=== PATIENT | female | born 1995 | race Caucasian/White ===

== ENCOUNTER 2018-08-27 18:40 | Emergency (ER) | payer OTHER ==
[2018-08-27] MEDS ORDERED: TYLENOL 325 MG PO ONE (19:23)
--- NOTE | 2018-08-27 19:29 | ERPHSYRPT ---
- History of Present Illness Time Seen by Provider: 08/27/18 19:18 Source: patient Exam Limitations: no limitations Patient Subjective Stated Complaint: states fell while having a "black out spell " onto wooden porch at approx 4 pm today. now having a headache. Triage Nursing Assessment: to room per w/c. skin w/d, color normal, resp easy. patient very weak and assisted to bed from w/c. small raised area noted to left side of head, tender to touch. fatou Physician History: 23 year old white female with history of chronic muscle weakness , pseudoseizures , non epileptic seizures, arrives with complaint of head pain since "black out spell at approximately 4:00 pm today. patient states she chronically passes out several times a day she states she did so at 4:00 today and hit her head. now complains of generalized headache. past medical history : pseudoseizures, non eptileptic seizures, black out spells , chronic muscle wweakness , walks with a cane. past surgical history: myringotomy tubes. Timing/Duration: today (4:00 pm) Severity: moderate Modifying Factors: Improves With: nothing Associated Symptoms: headaches, syncope, No nausea, No vomiting, No abdominal pain, No shortness of breath, No heartburn, No diaphoresis, No cough, No chills , No chest pain, No fever, No loss of appetite, No malaise, No rash, No seizure , No weakness, No other Allergies/Adverse Reactions: sertraline [From Zoloft] Adverse Reaction (Verified 08/27/18 19:14) Home Medications: No Reportable Medications [No Reported Medications] 08/27/18 [History] Hx Tetanus, Diphtheria Vaccination/Date Given: No Hx Influenza Vaccination/Date Given: No Hx Pneumococcal Vaccination/Date Given: No - Review of Systems Constitutional: No Symptoms Eyes: No Symptoms Ears, Nose, & Throat: No Symptoms Respiratory: No Cough, No Dyspnea Cardiac: No Chest Pain, No Edema, No Syncope Abdominal/Gastrointestinal: No Abdominal Pain, No Nausea, No Vomiting, No Diarrhea Genitourinary Symptoms: No Dysuria Musculoskeletal: Other (chronic muscle weakness), No Back Pain, No Neck Pain Skin: No Rash Neurological: Headache, Other (black out spells several per day), No Dizziness, No Focal Weakness, No Gait Changes, No Irritability, No Lethargy, No Paralysis, No Parasthesia, No Seizure, No Sensory Changes, No Speech Changes, No Tics, No Tremors, No Vertigo Psychological: No Symptoms Endocrine: No Symptoms All Other Systems: Reviewed and Negative - Past Medical History Pertinent Past Medical History: Yes Neurological History: Other Other Medical History: nonepileptic pseudoseizure - Past Surgical History Past Surgical History: Yes Other Surgical History: tubes in ears - Social History Smoking Status: Never smoker Exposure to second hand smoke: No Drug Use: none Patient Lives Alone: No - Female History Hx Last Menstrual Period: 08/21/18 Hx Now: No - Nursing Vital Signs Nursing Vital Signs: Initial Vital Signs Temperature 97.9 F 08/27/18 18:57 Pulse Rate 66 08/27/18 18:57 Respiratory Rate 16 08/27/18 18:57 Blood Pressure 109/57 08/27/18 18:57 O2 Sat by Pulse Oximetry 66 L 08/27/18 18:57 Pain Scale Pain Intensity 3 - Physical Exam General Appearance: no apparent distress, alert, other (head mild tenderness occipital area) Eye Exam: PERRL/EOMI, eyes nml inspection Ears, Nose, Throat Exam: normal ENT inspection, TMs normal, pharynx normal, moist mucous membranes Neck Exam: normal inspection, non-tender, supple, full range of motion Respiratory Exam: normal breath sounds, lungs clear, No respiratory distress Cardiovascular Exam: regular rate/rhythm, normal heart sounds, normal peripheral pulses Gastrointestinal/Abdomen Exam: soft, normal bowel sounds, No tenderness, No mass Back Exam: normal inspection, normal range of motion, No CVA tenderness, No vertebral tenderness Extremity Exam: normal inspection, normal range of motion, pelvis stable Neurologic Exam: alert, oriented x 3, senior service technician II-XII nml as tested, other (patient with arms waving around when performing finger to nose able to touch localized area on face spontaneously bilaterally when distracted.), No motor deficits, No sensory deficit, No disoriented, No confusion, No agitation, No uncooperative, No intoxicated appearance, No depressed mood/affect, No facial droop, No slurred speech Skin Exam: normal color, warm, dry, No rash Lymphatic Exam: No adenopathy SpO2 Interpretation: normal (66%) SpO2: 66 Oxygen Delivery: Room Air - Course Nursing assessment & vital signs reviewed: Yes EKG Interpreted by Me: RATE (62 bpm), Sinus Rhythm, NORMAL AXIS, Other (EKG: Sinus rhythm, [address] or T wave changes noted essentially normal EKG) - CT Exams Head CT Interpretation: Discussed w/radiologist (normal ct head) Ordered Tests: Active Orders 24 hr Category Date Time Status EKG-ER Only STAT Care 08/27/18 19:22 Active IV Insertion STAT Care 08/27/18 19:22 Active Orthostatic Vital Signs STAT Care 08/27/18 21:08 Active HEAD WITHOUT CONTRAST [CT] Stat Exams 08/27/18 20:15 Taken CBC W DIFF Stat Lab 08/27/18 19:40 Completed CMP Stat Lab 08/27/18 19:40 Completed HCG QUALITATIVE,SERUM Stat Lab 08/27/18 19:40 Completed UA W/RFX UR CULTURE Stat Lab 08/27/18 19:59 Completed Urine Triage Profile Stat Lab 08/27/18 19:59 Completed Medication Summary Discontinued Medications Generic Name Dose Route Start Last Admin Trade Name Freq PRN Reason Stop Dose Admin Acetaminophen 650 mg 08/27/18 19:23 08/27/18 20:04 Tylenol 325 Mg PO 08/27/18 19:24 650 mg STAT ONE Administration Acetaminophen Confirm 08/27/18 20:00 Tylenol 325 Mg Administered 08/27/18 20:01 Dose 650 mg .ROUTE .STK-MED ONE Sodium Chloride 1,000 mls @ 100 mls/hr 08/27/18 19:30 08/27/18 21:41 Sodium Chloride 0.9% 1000 Ml IV 09/26/18 19:29 0 mls/hr .Q10H PRAMOD Infusion Sodium Chloride Confirm 08/27/18 20:00 Sodium Chloride 0.9% 1000 Ml Administered 08/27/18 20:01 Dose 1,000 mls @ ud .ROUTE .STK-MED ONE Lab/Rad Data: Laboratory Result Diagrams 08/27/18 19:40 08/27/18 19:40 Laboratory Results 08/27/18 08/27/18 08/27/18 Range/Units 19:59 19:59 19:40 WBC (4.0-10.5) K/mm3 RBC (4.1-5.4) M/mm3 Hgb (12.0-16.0) gm/dl Hct (35-47) % MCV (78-100) fl MCH (26-32) pg MCHC (32-36) g/dl RDW (11.5-14.0) % Plt Count (150-450) K/mm3 MPV (6-9.5) fl Gran % (36.0-66.0) % Eos # (Auto) (0-0.5) Absolute Lymphs (auto) (1.0-4.6) Absolute Monos (auto) (0.0-1.3) Lymphocytes % (24.0-44.0) % Monocytes % (0.0-12.0) % Eosinophils % (0.00-5.0) % Basophils % (0.0-0.4) % Absolute Granulocytes (1.4-6.9) Basophils # (0-0.4) Sodium (137-145) mmol/L Potassium (3.5-5.1) mmol/L Chloride (98-107) mmol/L Carbon Dioxide (22-30) mmol/L Anion Gap (5-15) MEQ/L BUN (7-17) mg/dL Creatinine (0.52-1.04) mg/dL Estimated GFR ML/MIN Glucose (74-106) mg/dL Calcium (8.4-10.2) mg/dL Total Bilirubin (0.2-1.3) mg/dL AST (14-36) U/L ALT (0-35) U/L Alkaline Phosphatase (38-126) U/L Serum Total Protein (6.3-8.2) g/dL Albumin (3.5-5.0) g/dL Serum , Qual NEGATIVE (Negative) Urine Color YELLOW (YELLOW) Urine Appearance CLEAR (CLEAR) Urine pH 6.0 (5-6) Ur Specific [place] 1.016 (1.005-1.025) Urine Protein NEGATIVE (Negative) Urine Ketones NEGATIVE (NEGATIVE) Urine Blood NEGATIVE (0-5) Lm/ul Urine Nitrite NEGATIVE (NEGATIVE) Urine Bilirubin NEGATIVE (NEGATIVE) Urine Urobilinogen NEGATIVE (0-1) mg/dL Ur Leukocyte Esterase NEGATIVE (NEGATIVE) Urine WBC (Auto) NONE (0-5) /HPF Urine RBC (Auto) NONE (0-2) /HPF U Epithel Cells (Auto) RARE (FEW) /HPF Urine Bacteria (Auto) NONE (NEGATIVE) /HPF Urine Mucus (Auto) SLIGHT (NEGATIVE) /HPF Urine Culture Reflexed NO (NO) Urine Glucose NEGATIVE (NEGATIVE) mg/dL Urine Opiates Level NEGATIVE (NEGATIVE) Ur Methadone NEGATIVE (NEGATIVE) Urine Barbiturates NEGATIVE (NEGATIVE) Ur Phencyclidine (PCP) NEGATIVE (NEGATIVE) Urine Amphetamine NEGATIVE (NEGATIVE) U Benzodiazepine Level NEGATIVE (NEGATIVE) Urine Cocaine NEGATIVE (NEGATIVE) Urine Marijuana (THC) NEGATIVE (NEGATIVE) 08/27/18 08/27/18 Range/Units 19:40 19:40 WBC 8.7 (4.0-10.5) K/mm3 RBC 4.23 (4.1-5.4) M/mm3 Hgb 13.2 (12.0-16.0) gm/dl Hct 39.5 (35-47) % MCV 93.4 (78-100) fl MCH 31.2 (26-32) pg MCHC 33.4 (32-36) g/dl RDW 12.7 (11.5-14.0) % Plt Count 205 (150-450) K/mm3 MPV 12.1 H (6-9.5) fl Gran % 57.5 (36.0-66.0) % Eos # (Auto) 0.17 (0-0.5) Absolute Lymphs (auto) 2.93 (1.0-4.6) Absolute Monos (auto) 0.59 (0.0-1.3) Lymphocytes % 33.6 (24.0-44.0) % Monocytes % 6.8 (0.0-12.0) % Eosinophils % 1.9 (0.00-5.0) % Basophils % 0.2 (0.0-0.4) % Absolute Granulocytes 5.02 (1.4-6.9) Basophils # 0.02 (0-0.4) Sodium 142 (137-145) mmol/L Potassium 4.0 (3.5-5.1) mmol/L Chloride 107 (98-107) mmol/L Carbon Dioxide 24 (22-30) mmol/L Anion Gap 14.5 (5-15) MEQ/L BUN 17 (7-17) mg/dL Creatinine 1.09 H (0.52-1.04) mg/dL Estimated GFR > 60.0 ML/MIN Glucose 85 (74-106) mg/dL Calcium 9.2 (8.4-10.2) mg/dL Total Bilirubin 0.30 (0.2-1.3) mg/dL AST 20 (14-36) U/L ALT 19 (0-35) U/L Alkaline Phosphatase 86 (38-126) U/L Serum Total Protein 7.9 (6.3-8.2) g/dL Albumin 4.3 (3.5-5.0) g/dL Serum , Qual (Negative) Urine Color (YELLOW) Urine Appearance (CLEAR) Urine pH (5-6) Ur Specific [place] (1.005-1.025) Urine Protein (Negative) Urine Ketones (NEGATIVE) Urine Blood (0-5) Lm/ul Urine Nitrite (NEGATIVE) Urine Bilirubin (NEGATIVE) Urine Urobilinogen (0-1) mg/dL Ur Leukocyte Esterase (NEGATIVE) Urine WBC (Auto) (0-5) /HPF Urine RBC (Auto) (0-2) /HPF U Epithel Cells (Auto) (FEW) /HPF Urine Bacteria (Auto) (NEGATIVE) /HPF Urine Mucus (Auto) (NEGATIVE) /HPF Urine Culture Reflexed (NO) Urine Glucose (NEGATIVE) mg/dL Urine Opiates Level (NEGATIVE) Ur Methadone (NEGATIVE) Urine Barbiturates (NEGATIVE) Ur Phencyclidine (PCP) (NEGATIVE) Urine Amphetamine (NEGATIVE) U Benzodiazepine Level (NEGATIVE) Urine Cocaine (NEGATIVE) Urine Marijuana (THC) (NEGATIVE) - Progress Progress: improved Progress Note: 08/27/18 19:38 23-year-old white female arrives with complaint of generalized headache after apparently suffering "a blackout spell" falling and hitting her head this afternoon at 4:00. Patient states she has a history of multiple blackout spells during the day. She has a history of pseudoseizure nonepileptic seizure apparently chronic muscle weakness apparently walks with a cane or walker. Patient states that she has been fired by several neurologists she states that her current neurologist has fired her. When I do physical examination to the patient patient is alert oriented 3 speech is normal there is no facial droo apartment maintenance are equal bilaterally finger to nose, patient weighs her arms around but eventually touches her above her nose it is noted that when she is getting her blood brought in while I'm talking to her and distracting her she is able to reach to her mouth and has purposeful movements and no problems reaching for objects. There does not appear to be much effort at moving her lower legs. The patient apparently does this with her blackout spells and this is a chronic problem. past medical history nonepileptic seizures, pseudoseizures, chronic muscle weakness. Past surgical history myringotomy tubes 08/27/18 20:22 The patient's nurse reports approximately 1 minute. When the patient rolled her eyes up in her head and was unresponsive no tonic-clonic activity no problems breathing no change in vitals. This occurred when the patient's nurse went to give the patient Tylenol patient recovered spontaneously sat up and took her Tylenol. 08/27/18 20:24 Patient was able to ambulate with her 's assistance to the bathroom to provide a urine. 08/27/18 20:[address] Patient feeling better. Patient states that she has had multiple episodes of passing out for about 6 months. She states that she is ""fired" by her neurologist. She states she is planning to go to [facility] in October. I have offered the patient a telephone neurology consult she does not want this she wishes to go home. Head CT read by radiologist no comparisons normal CT of the head. Impression 1 syncopal episode 2. Head contusion 3. Seizure-like activity 4. Headache 5. History of pseudoseizures 6. History of nonepileptic seizures. Plan home, avoid hazardous activities. No driving, Tylenol as needed for pain. Patient follow-up with neurologist of her choice or family doctor (list) Return for acute distress or for severe symptoms. 08/27/18 21:01 Please note that pulse oximetry has been erroneously entered as 66%. Patient has been running around 98-99% since arrival - Departure Time of Disposition: 21:35 Departure Disposition: Home Clinical Impression: Seizure-like activity, History of pseudoseizure, history of nonepileptic seizure Syncope Qualifiers: Syncope type: unspecified Qualified Code(s): R55 - Syncope and collapse Head contusion Qualifiers: Encounter type: initial encounter Contusion of head detail: unspecified part of head Qualified Code(s): S00.93XA - Contusion of unspecified part of head, initial encounter Condition: Fair Critical Care Time: No Referrals: DOCTOR,NO FAMILY [Primary Care Provider] - Instructions: Closed Head Injury Additional Instructions: Return home, No driving, No hazardous activity, no heights, take showers instead of baths. Do not engage in any activity which might harm yourself or others. Follow-up with your family doctor (list) or neurologist of your choice. Return for acute distress severe symptoms or for any reason. Tylenol every 4 hours as needed for pain.
[2018-08-27] MEDS ORDERED: Sodium Chloride 0.9% 1000 ML 1,000 ML IV SCH (19:30)
[2018-08-27] MEDS ORDERED: TYLENOL 325 MG ONE (20:00)
[2018-08-27] MEDS ORDERED: Sodium Chloride 0.9% 1000 ML 1,000 ML ONE (20:00)
[2018-08-27 20:04] LABS: BASOPHIL % 0.2 % (0.0-0.4); Basophil (Absolute #) 0.02 (0-0.4); Eosinophil % 1.9 % (0.00-5.0); Eosinophil (Absolute #) 0.17 (0-0.5); Granulocyte Absolute (ANC) 5.02 (1.4-6.9); Granulocytes % 57.5 % (36.0-66.0); Hematocrit 39.5 % (35-47); Hemoglobin 13.2 gm/dl (12.0-16.0); Lymphocyte (Absolute #) 2.93 (1.0-4.6); Lymphocytes % 33.6 % (24.0-44.0); Mean Cell Volume 93.4 fl (78-100); Mean Corpuscular Hemoglobin 31.2 pg (26-32); Mean Corpuscular Hgb Concent. 33.4 g/dl (32-36); Mean Platelet Volume 12.1 fl (6-9.5); Monocyte (Absolute #) 0.59 (0.0-1.3); Monocytes % 6.8 % (0.0-12.0); Platelet Count 205 K/mm3 (150-450); Red Blood Count 4.23 M/mm3 (4.1-5.4); Red Cell Distribution Width 12.7 % (11.5-14.0); White Blood Count 8.7 K/mm3 (4.0-10.5)
[2018-08-27 20:15] LABS: ALBUMIN 4.3 g/dL (3.5-5.0); ALKALINE PHOSPHATASE 86 U/L (38-126); ANION GAP 14.5 MEQ/L (5-15); BLOOD UREA NITROGEN 17 mg/dL (7-17); CHLORIDE 107 mmol/L (98-107); Calcium 9.2 mg/dL (8.4-10.2); Carbon Dioxide 24 mmol/L (22-30); Creatinine 1 1.09 mg/dL (0.52-1.04); Glucose 85 mg/dL (74-106); SGOT/AST 20 U/L (14-36); SGPT/ALT 19 U/L (0-35); SODIUM 142 mmol/L (137-145); Total Protein 7.9 g/dL (6.3-8.2)
[2018-08-27 20:45] LABS: Appearance CLEAR (CLEAR); Bilirubin NEGATIVE (NEGATIVE); Blood NEGATIVE Ery/ul (0-5); Glucose NEGATIVE (NEGATIVE); Ketones NEGATIVE (NEGATIVE); Leukocyte Esterase NEGATIVE (NEGATIVE); Nitrite NEGATIVE (NEGATIVE); Protein,Urine Dip NEGATIVE (Negative); Specific Gravity 1.016 (1.005-1.025); Urobilinogen NEGATIVE mg/dL (0-1)
[2018-08-27 21:24] LABS: Amphetamine,Urine NEGATIVE (NEGATIVE); Barbiturate,Urine NEGATIVE (NEGATIVE); Benzodiazepine,Urine NEGATIVE (NEGATIVE); Cocaine,Urine NEGATIVE (NEGATIVE); Methadone,Urine NEGATIVE (NEGATIVE); Opiate,Urine NEGATIVE (NEGATIVE); PCP,Urine NEGATIVE (NEGATIVE); THC,Urine NEGATIVE (NEGATIVE)
[2018-08-27 21:40] VITALS: BP 101/69; PULSE 90
[2018-08-28 01:27] VITALS: O2SAT 66
--- NOTE | 2018-08-28 08:39 | XRAY ---
Indication: Posterior head injury following fall. Possible seizure. Multiple contiguous axial images obtained through the head without contrast. Comparison: None Normal appearing brain parenchyma, ventricles, and bony calvarium. Visualized paranasal sinuses and mastoid air cells are clear. Impression: Normal CT head without contrast exam. CT DI 52.32
== END 2018-08-27 21:41 | disposition home or self-care (01) ==
LOC: ED 18:40
DX: R55 Syncope and collapse (principal); R51 Headache; S00.93XA Contusion of unspecified part of head, initial encounter; R56.9 Unspecified convulsions; W18.39XA Other fall on same level, initial encounter; Y93.89 Activity, other specified
CPT/HCPCS: 36000; 36415; 70450; 80053; 80307; 81001; 81025; 85025; 93005; 96360; 99284; A9270-GY